=== PATIENT | female | born 1985 | race Hispanic/Latino ===

== ENCOUNTER 2023-12-29 06:24 | Day surgery (SDC) | payer OTHER ==
[2023-12-29 07:02] VITALS: BMI 38.2
[2023-12-29] MEDS ORDERED: Lidocaine 2% PF 5 ML VIAL ONE (08:00)
[2023-12-29] MEDS ORDERED: ePHEDrine Sulfate 50 MG/10 ML VIAL ONE (08:00)
[2023-12-29 08:37] LABS: #Basophils 0.04 10x3/uL (0.0-0.2); #Eosinophils 0.17 10x3/uL (0.0-0.5); #Monocytes 0.67 10x3/uL (0.0-1.1); #Neutrophils 4.93 10x3/uL (1.5-8.4); %Basophils 0.5 % (0.0-2.0); %Eosinophils 2.2 % (0.0-6.0); %Lymphocytes 25.5 % (18.0-47.0); %Monocytes 8.5 % (0.0-10.0); %Neutrophils 62.8 % (40.0-75.0); Hematocrit 32.1 % (34.9-44.5); Hemoglobin 11.2 g/dL (12.0-15.5); Mean Corpuscular HGB CONC 34.9 g/dL (32.0-36.0); Mean Corpuscular Hemoglobin 31.7 pg (27.0-33.0); Mean Corpuscular Volume 90.9 fL (81.6-98.3); Mean Platelet Volume 12.2 fL (7.4-10.4); Platelet Count 228 10x3/uL (150-450); RBC Distribution Width 13.3 % (11.5-14.5); Red Blood Cell (RBC) Count 3.53 10x6/uL (3.90-5.03); White Blood Cell (WBC) Count 7.9 10x3/uL (3.5-10.5)
[2023-12-29] MEDS: Terbutaline Sulfate 1 MG/ML VIAL SC SCH (09:19)
[2023-12-29] MEDS ORDERED: Lactated Ringer's 1,000 ML IV SCH (12:15)
== END 2023-12-29 13:32 | disposition home or self-care (01) ==
LOC: CSHLD/OP 06:24
PROVIDERS: ATTEND Student in an Organized Health Care Education/Training Program
PROC: 10S0XZZ Reposition Products of Conception, External Approach (ICD-10-PCS; principal; 2023-12-29)
DX: O32.1XX0 Maternal care for breech presentation, not applicable or unspecified (principal); O09.33 Supervision of pregnancy with insufficient antenatal care, third trimester; O99.013 Anemia complicating pregnancy, third trimester; O09.43 Supervision of pregnancy with grand multiparity, third trimester; O09.523 Supervision of elderly multigravida, third trimester; O99.891 Other specified diseases and conditions complicating pregnancy; R73.03 Prediabetes; Z79.899 Other long term (current) drug therapy; Z3A.37 37 weeks gestation of pregnancy
CPT/HCPCS: 59412; 85025; 96360; 99283; J3105

== ENCOUNTER 2024-01-11 19:00 | Inpatient (IN) | payer MEDICAID, OTHER, SELFPAY ==
[~2024-01-11 19:00] MED LIST: Bupivacaine 0.25% HCL 30 ML VIAL ONE
[2024-01-11] MEDS: Lactated Ringer's 1,000 ML IV SCH (23:15)
[2024-01-11] MEDS ORDERED: Docusate 100 MG CAP PO PRN (23:54)
[2024-01-11] MEDS ORDERED: hydrALAZINE 20 MG/ML VIAL SLOW IVP PRN (23:54)
[2024-01-11] MEDS ORDERED: Tranexamic Acid 1,000 MG/10 ML VIAL IVP PRN (23:54)
[2024-01-11] MEDS ORDERED: Carboprost 250 MCG/ML AMP IM PRN (23:54)
[2024-01-11] MEDS ORDERED: Ondansetron PF 4 MG/2 ML Vial IVP PRN (23:54)
[2024-01-11] MEDS ORDERED: Promethazine HCl 25 MG/ML VIAL IM PRN (23:54)
[2024-01-11] MEDS ORDERED: Lidocaine 1% (PF) 30 ML VIAL SC PRN (23:54)
[2024-01-11] MEDS ORDERED: Methylergonovine 0.2 MG/ML VIAL IM PRN (23:54)
[2024-01-11] MEDS ORDERED: Misoprostol 200 MCG TAB PR PRN (23:54)
[2024-01-12 00:14] VITALS: BMI 39.0
[2024-01-12 00:37] LABS: Hematocrit 33.2 % (34.9-44.5); Hemoglobin 11.5 g/dL (12.0-15.5); Mean Corpuscular HGB CONC 34.6 g/dL (32.0-36.0); Mean Corpuscular Hemoglobin 31.4 pg (27.0-33.0); Mean Corpuscular Volume 90.7 fL (81.6-98.3); Mean Platelet Volume 11.9 fL (7.4-10.4); Platelet Count 214 10x3/uL (150-450); RBC Distribution Width 13.1 % (11.5-14.5); Red Blood Cell (RBC) Count 3.66 10x6/uL (3.90-5.03); White Blood Cell (WBC) Count 9.7 10x3/uL (3.5-10.5)
[2024-01-12] MEDS: Misoprostol 100 MCG TAB VAG SCH (00:44)
[2024-01-12 01:09] LABS: HBsAg Index 0.15 S/CO (0-0.99); Hep B Surf Ag - L&D Non-Reactive S/CO (NonReactive)
[2024-01-12 01:11] LABS: Syphilis Antibody Nonreactive (Nonreactive); Syphilis Antibody Index 0.05 S/CO (<1.00 Non-Reactive)
[2024-01-12] MEDS: Oxytocin 30 units/NS 500 ML 500 ML IV SCH ×2 (05:26→15:01)
[2024-01-12 08:09] LABS: Creatinine, Urine 30.31 mg/dL (47-110); Protein, Urine Random Quant Less than 10 mg/dL (1-14)
[2024-01-12 08:53] LABS: ALT (SGPT) 16 U/L (8-55); AST (SGOT) 20 U/L (5-34); Albumin 2.8 g/dL (3.5-5.0); Alkaline Phosphatase 135 U/L (40-110); Anion Gap 12 mmol/L (10-20); BUN (Urea Nitrogen) 7 mg/dL (7.0-18.7); Bilirubin, Total 0.4 mg/dL (0.2-1.2); Calc. Creatinine Clearance 219 mL/min (70-130); Calcium 9.2 mg/dL (7.8-10.44); Carbon Dioxide 21 mmol/L (22-29); Chloride 106 mmol/L (98-107); Estimated GFR 122; Globulin 3.6 g/dL (2.4-3.5); Glucose 81 mg/dL (70-105); Potassium 3.4 mmol/L (3.5-5.1); Protein, Total 6.4 g/dL (6.0-8.3); Sodium 136 mmol/L (136-145)
[2024-01-12] MEDS: fentaNYL/Ropivacaine Epidural 100 ML ONE (09:06)
[2024-01-12 09:09] LABS: Influenza A by NAA Not Detected (NotDetected); Influenza B by NAA Not Detected (NotDetected); SARS-CoV-2 NAA Rapid Test Not Detected (NotDetected)
[2024-01-12] MEDS ORDERED: Moisturizing Cream (Eucerin) 113 GM JAR TOP PRN (09:13)
[2024-01-12] MEDS ORDERED: Ondansetron PF 4 MG/2 ML Vial IVP PRN (09:13)
[2024-01-12] MEDS ORDERED: Naloxone HCl 0.4 mg/ml Vial IVP PRN ×2 (09:13)
[2024-01-12] MEDS ORDERED: Lactated Ringer's 500 ML IV PRN (09:13)
[2024-01-12] MEDS ORDERED: diphenhydrAMINE 50 MG/ML VIAL IVP PRN (09:13)
[2024-01-12] MEDS ORDERED: ePHEDrine Sulfate 50 MG/10 ML VIAL SLOW IVP PRN (09:13)
[2024-01-12] MEDS ORDERED: Promethazine HCl 25 MG/ML VIAL IM PRN (09:13)
[2024-01-12] MEDS ORDERED: Communication Order-Pharmacy FS SCH (09:15)
[2024-01-12] MEDS ORDERED: fentaNYL 2 mcg/Ropivacaine 0.2% Epidural 100 ML CADD EPIDURAL SCH (09:15)
[2024-01-12] MEDS ORDERED: Boostrix 0.5 ML (Tdap) VIAL (>/=7 yrs of age) IM ONE (13:31)
[2024-01-12] MEDS ORDERED: Bisacodyl 10 MG SUPP PR PRN (13:31)
[2024-01-12] MEDS ORDERED: Milk Of Magnesia 30 ML UDCUP PO PRN (13:31)
[2024-01-12] MEDS: Ibuprofen 800 MG TAB PO PRN (14:25)
[2024-01-12] MEDS: Ibuprofen 800 MG TAB PO SCH (16:57)
[2024-01-12] MEDS: Acetaminophen 325 MG TAB PO PRN (20:06)
[2024-01-12] MEDS: Docusate 100 MG CAP PO SCH (20:06)
[2024-01-13] MEDS: Misoprostol 100 MCG TAB ONE (07:40)
[2024-01-13] MEDS: Ferrous Sulfate 325 MG TAB PO SCH (08:51)
[2024-01-13] MEDS: NIFEdipine XL 30 MG ER.TAB PO SCH (20:44)
[2024-01-14] MEDS: Acetaminophen 500 MG TAB PO PRN (08:04)
[2024-01-14 15:56] VITALS: BP 130/80; TEMP 98.3
[2024-01-14] MEDS ORDERED: NIFEdipine XL 30 MG ER.TAB PO SCH (21:00)
== END 2024-01-14 20:18 | disposition home or self-care (01) | DRG 807 ==
LOC: CSHLD 20:57 → CSHPP 01-12 15:59
PROVIDERS: ADMIT Family Medicine; ATTEND Family Medicine
PROC: 10E0XZZ Delivery of Products of Conception, External Approach (ICD-10-PCS; principal; 2024-01-12)
PROC: 10H07YZ Insertion of Other Device into Products of Conception, Via Natural or Artificial Opening (ICD-10-PCS; 2024-01-12)
PROC: 10907ZC Drainage of Amniotic Fluid, Therapeutic from Products of Conception, Via Natural or Artificial Opening (ICD-10-PCS; 2024-01-12)
DX: O99.214 Obesity complicating childbirth (principal); Z37.0 Single live birth; Z3A.39 39 weeks gestation of pregnancy; E66.9 Obesity, unspecified; O16.5 Unspecified maternal hypertension, complicating the puerperium
CPT/HCPCS: 36415; 51702; 80053; 82570; 84156; 85027; 86780; 86850; 86900; 86901; 87340; J0665; J2590; J7120